=== PATIENT | male | born 1950 | race African-American/Black ===

== ENCOUNTER 2022-02-06 20:09 | Inpatient (IN) | payer MEDICARE ==
[2022-02-06] MEDS ORDERED: Acetaminophen 325 MG TAB PO PRN (23:08)
[2022-02-06] MEDS ORDERED: Ondansetron PF 4 MG/2 ML Vial IVP PRN (23:08)
[2022-02-06] MEDS ORDERED: hydrALAZINE 20 MG/ML VIAL SLOW IVP PRN (23:09)
[2022-02-06] MEDS ORDERED: Nitroglycerin 0.4 MG TAB (25 Tab Bottle) SL PRN (23:10)
[2022-02-06 23:21] VITALS: BMI 20.6
[2022-02-06 23:50] LABS: Troponin I 0.023 ng/mL (< 0.028)
[2022-02-07 05:28] LABS: Band 3 % (5-11); Hemoglobin 14.3 g/dL (14.0-18.0); Lymphocytes 23 % (21-51); MDiff Complete? YES; Mean Corpuscular HGB CONC 32.5 g/dL (32.0-36.0); Mean Corpuscular Hemoglobin 34.5 pg (27.0-31.0); Mean Platelet Volume 8.9 fL (7.4-10.4); Monocytes 21 % (0-10); Neutrophil 53 % (42-75); Platelet Count 119 thou/uL (130-400); Platelet Morphology Comment Appears Decreased; RBC Distribution Width 12.3 % (11.5-14.5); RBC Morphology Normal; Red Blood Cell (RBC) Count 4.15 mill/uL (4.70-6.10); White Blood Cell (WBC) Count 7.3 thou/uL (4.8-10.8)
[2022-02-07 05:31] LABS: Anion Gap 12 mmol/L (10-20); BUN (Urea Nitrogen) 8 mg/dL (8.4-25.7); Calc. Creatinine Clearance 82 mL/min (70-130); Calcium 9.1 mg/dL (7.8-10.44); Carbon Dioxide 28 mmol/L (23-31); Cardiac Risk 2.1 (Less than 4.5); Chloride 104 mmol/L (98-107); Cholesterol 113 mg/dl (< 200 Desired); Glucose 88 mg/dL (80-115); HDL Cholesterol 53 mg/dL (>60 Neg Risk); LDL Cholesterol, Calculated 51 mg/dL; Magnesium 1.5 mg/dL (1.6-2.6); Potassium 3.1 mmol/L (3.5-5.1); Sodium 141 mmol/L (136-145); Triglycerides 47 mg/dL (Less than 150); Troponin I 0.022 ng/mL (< 0.028)
[2022-02-07] MEDS ORDERED: Loperamide HCl 2 MG CAP PO PRN (09:18)
[2022-02-07] MEDS ORDERED: Cepastat Lozenges 1 LOZ PO PRN (09:18)
[2022-02-07] MEDS ORDERED: Senokot S 8.6-50 MG TAB PO PRN (09:18)
[2022-02-07] MEDS ORDERED: HYDROcodone/Acetaminophen 5/325 mg Tablet PO PRN (09:18)
[2022-02-07] MEDS ORDERED: Loratadine 10 MG TAB PO PRN (09:18)
[2022-02-07] MEDS ORDERED: Moisturizing Cream (Eucerin) 113 GM JAR TOP PRN (09:18)
[2022-02-07] MEDS ORDERED: Artificial Tear Sol 15 ML BOT EA EYE PRN (09:18)
[2022-02-07] MEDS ORDERED: Zolpidem Tartrate 5 MG TAB PO PRN (09:18)
[2022-02-07] MEDS ORDERED: GUAIFENESIN SF SOLN 200 MG/10 ML UDCUP PO PRN (09:18)
[2022-02-07] MEDS ORDERED: ADENOSINE 60 MG/20 ML VIAL ONE (09:32)
[2022-02-07] MEDS: Enoxaparin Sodium 60 MG/0.6 ML SYRINGE SC SCH ×2 (12:30→19:54)
[2022-02-07] MEDS: Allopurinol 100 MG TAB PO SCH (12:31)
[2022-02-07] MEDS: Famotidine 20 MG TAB PO SCH ×2 (12:31→19:53)
[2022-02-07] MEDS: Colchicine 0.6 MG TAB PO SCH (12:31)
[2022-02-07] MEDS: Losartan 25 MG TAB PO SCH (12:32)
[2022-02-07 13:09] LABS: SARS-CoV-2 PCR by NAA Not Detected (NotDetected)
[2022-02-07] MEDS ORDERED: Potassium Chloride 20 MEQ TAB PO SCH (18:30)
[2022-02-07] MEDS ORDERED: Magnesium 2 GM/50 ML(in water) 2 GM in Premix Bag 1 BAG IVPB SCH (18:45)
[2022-02-07] MEDS ORDERED: NIFEdipine XL 30 MG TAB PO SCH (21:00)
[2022-02-07 22:25] LABS: Anion Gap 10 mmol/L (10-20); BUN (Urea Nitrogen) 13 mg/dL (8.4-25.7); Calc. Creatinine Clearance 70 mL/min (70-130); Calcium 8.7 mg/dL (7.8-10.44); Carbon Dioxide 28 mmol/L (23-31); Chloride 104 mmol/L (98-107); Glucose 107 mg/dL (80-115); Magnesium 1.9 mg/dL (1.6-2.6); Potassium 3.5 mmol/L (3.5-5.1); Sodium 138 mmol/L (136-145)
[2022-02-08 05:11] LABS: Anion Gap 9 mmol/L (10-20); BUN (Urea Nitrogen) 12 mg/dL (8.4-25.7); Calc. Creatinine Clearance 68 mL/min (70-130); Calcium 9.2 mg/dL (7.8-10.44); Carbon Dioxide 31 mmol/L (23-31); Chloride 105 mmol/L (98-107); Glucose 115 mg/dL (80-115); Magnesium 1.9 mg/dL (1.6-2.6); Potassium 3.6 mmol/L (3.5-5.1); Sodium 141 mmol/L (136-145)
[2022-02-08 05:21] LABS: Band 3 % (5-11); Eosinophils 2 % (0-10); Lymphocytes 42 % (21-51); MDiff Complete? YES; Macrocytosis MODERATE=16-30 cells (100X) (0-5/hpf); Mean Corpuscular HGB CONC 32.9 g/dL (32.0-36.0); Mean Corpuscular Hemoglobin 35.3 pg (27.0-31.0); Mean Platelet Volume 8.5 fL (7.4-10.4); Monocytes 11 % (0-10); Neutrophil 40 % (42-75); Platelet Count 117 thou/uL (130-400); Platelet Morphology Comment Appears Decreased; RBC Distribution Width 12.2 % (11.5-14.5); Red Blood Cell (RBC) Count 3.69 mill/uL (4.70-6.10); White Blood Cell (WBC) Count 5.1 thou/uL (4.8-10.8)
[2022-02-08] MEDS ORDERED: NIFEdipine XL 60 MG TAB PO SCH (07:30)
[2022-02-08] MEDS: Enoxaparin Sodium 60 MG/0.6 ML SYRINGE SC SCH ×2 (08:57→20:08)
[2022-02-08] MEDS: Allopurinol 100 MG TAB PO SCH (08:57)
[2022-02-08] MEDS: Famotidine 20 MG TAB PO SCH ×2 (08:57→20:08)
[2022-02-08] MEDS: Losartan 25 MG TAB PO SCH (08:57)
[2022-02-08] MEDS: Colchicine 0.6 MG TAB PO SCH (16:55)
[2022-02-09 05:18] LABS: Anion Gap 11 mmol/L (10-20); BUN (Urea Nitrogen) 7 mg/dL (8.4-25.7); Calc. Creatinine Clearance 81 mL/min (70-130); Carbon Dioxide 30 mmol/L (23-31); Chloride 103 mmol/L (98-107); Glucose 86 mg/dL (80-115); Magnesium 1.6 mg/dL (1.6-2.6); Potassium 3.5 mmol/L (3.5-5.1); Sodium 140 mmol/L (136-145)
[2022-02-09 05:44] LABS: Band 1 % (5-11); Eosinophils 2 % (0-10); Hemoglobin 12.9 g/dL (14.0-18.0); Lymphocytes 64 % (21-51); MDiff Complete? YES; Mean Corpuscular HGB CONC 32.2 g/dL (32.0-36.0); Mean Corpuscular Hemoglobin 34.6 pg (27.0-31.0); Mean Platelet Volume 8.3 fL (7.4-10.4); Monocytes 10 % (0-10); Neutrophil 23 % (42-75); Platelet Count 127 thou/uL (130-400); RBC Distribution Width 12.1 % (11.5-14.5); Red Blood Cell (RBC) Count 3.71 mill/uL (4.70-6.10); White Blood Cell (WBC) Count 4.5 thou/uL (4.8-10.8)
[2022-02-09 07:49] VITALS: BP 149/77; TEMP 97.5
[2022-02-09] MEDS: Famotidine 20 MG TAB PO SCH (08:51)
[2022-02-09] MEDS: Allopurinol 100 MG TAB PO SCH (08:51)
[2022-02-09] MEDS: Losartan 25 MG TAB PO SCH (08:51)
[2022-02-09] MEDS: Colchicine 0.6 MG TAB PO SCH (08:52)
[2022-02-09] MEDS ORDERED: Apixaban 5 MG TAB PO SCH (09:00)
== END 2022-02-09 11:49 | disposition home health service (06) | DRG 310 ==
LOC: 2SW 20:09 → OBSVTOIN 02-08 08:13
PROVIDERS: ADMIT Internal Medicine; ATTEND Internal Medicine
DX: I48.0 Paroxysmal atrial fibrillation (principal); I10 Essential (primary) hypertension; M10.9 Gout, unspecified; K21.9 Gastro-esophageal reflux disease without esophagitis; F17.210 Nicotine dependence, cigarettes, uncomplicated; I45.5 Other specified heart block; Z20.822 Contact with and (suspected) exposure to COVID-19; Z79.899 Other long term (current) drug therapy
CPT/HCPCS: 36415; 78452; 80048; 80061; 83735; 84132; 84443; 84484; 85025; 93017; 93306; 94760; A9500; J0153; J0360; J1650; J3475; U0003; U0005